=== PATIENT | female | born 1980 | race Caucasian/White ===

== ENCOUNTER → 2019-08-28 | Emergency (ER) | payer MEDICAID, OTHER, SELFPAY ==
[~2019-08-28] VITALS: Ht 162.6 cm; Wt 78.9 kg
[2019-08-28 18:23] VITALS: BP 138/90
== END | disposition home or self-care (01) ==
LOC: ER 17:55
DX: R05 Cough (principal); R51 Headache; R06.02 Shortness of breath; Z20.828 Contact with and (suspected) exposure to other viral communicable diseases
CPT/HCPCS: 71045; 87635

== ENCOUNTER → 2019-09-05 | Emergency (ER) | payer SELFPAY ==
[~2019-09-05] VITALS: Ht 162.6 cm; Wt 79.4 kg
[~2019-09-05] MED LIST: diphenhdrAMINE HCL 50 MG/1 ML VL IM ONE; methylPREDNISolone SOD SUCC 125 MG/2 ML VL IM ONE
[2019-09-05 20:03] VITALS: BP 130/79
== END | disposition home or self-care (01) ==
LOC: ER 18:46
DX: T78.40XA Allergy, unspecified, initial encounter (principal); R07.89 Other chest pain; X58.XXXA Exposure to other specified factors, initial encounter
CPT/HCPCS: 71045

== ENCOUNTER 2023-12-24 13:06 | Inpatient (IN) | payer BC, MEDICAID ==
[~2023-12-24] VITALS: Ht 162.6 cm; Wt 75.0 kg
[2023-12-24] MEDS: ASPirin 325 MG TAB PO ONE (13:30)
--- NOTE | 2023-12-24 13:49 | ED.PDOC ---
HPI Comments 43F presents to the Er w/ prior Hx on anxiety and a heart blockage which may be associated to the c/c of CP. Pt reports on driving home from [place] when she started to get substernal CP which radiated to the back 20 minutes ago. Pt notes on the pain being constant, sharp and pressure like. Pt has had similar pain in the past. PMHx of Chronic pain. SHx of Hysterectomy. Denies chills, fever, N/V/D, SOB or other associated symptoms, modifiers, or recent injuries at this time. Chief Complaint: Chest Pain Time Seen by MD: 13:30 Primary Care Provider: DESMOND Stern Notes: Nurses Notes, Medications, Allergies Allergies: Coded Allergies: NO KNOWN ALLERGIES (Unverified , 07/02/13) Information Source: Patient Mode of Arrival: Ambulatory Severity: Moderate Timing: Minutes Duration: Since onset, Minutes Prehospital treatment: None Location: Substernal Radiation: Back Quality: Sharp, Pressure Onset: At Rest Cardiac Risk Factors: None PE Risk Factors: None History of: Similar pain in past Associated Signs and Symptoms: Back Pain Past Medical History PAST MEDICAL HISTORY: Anxiety Past Medical History (Other): Heart blockage and chronic pain Surgical History: 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 Family History Family History: Reviewed,noncontributory to illness, Unknown Social History Smoker: Non-Smoker Alcohol: Denies ETOH Use Drugs: Denies Drug Use Lives In: Home Constitutional: denies: chills, diaphoresis, fatigue, fever, malaise, sweats, weakness, others EENTM: denies: blurred vision, double vision, ear bleeding, ear discharge, ear drainage, ear pain, ear ringing, eye pain, eye redness, hearing loss, mouth pain, mouth swelling, nasal discharge, nose bleeding, nose congestion, nose pain, photophobia, tearing, throat pain, throat swelling, voice changes, others Respiratory: denies: cough, hemoptysis, orthopnea, SOB at rest, shortness of breath, SOB with excertion, stridor, wheezing, others Cardiovascular: reports: chest pain; denies: dizzy spells, diaphoresis, Dyspnea on exertion, edema, irregular heart beat, left arm pain, lightheadedness, palpitations, PND, syncope, others Gastrointestinal: denies: abdomen distended, abdominal pain, blood streaked bowels, constipated, diarrhea, dysphagia, difficulty swallowing, hematemesis, melena, nausea, poor appetite, poor fluid intake, rectal bleeding, rectal pain, vomiting, others Genitourinary: denies: abnormal vagina bleeding, burning, dyspareunia, dysuria, flank pain, frequency, hematuria, incontinence, pain, , vagina discharge, urgency, others Neurological: denies: dizziness, fainting, headache, left sided numbness, left sided weakness, numbness, paresthesia, pre-existing deficit, right sided numbness, right sided weakness, seizure, speech problems, tingling, tremors, weakness, others Musculoskeletal: reports: back pain; denies: gout, joint pain, joint swelling, muscle pain, muscle stiffness, neck pain, others Integumetry: denies: bruises, change in color, change in hair/nails, dryness, laceration, lesions, lumps, rash, wounds, others Allergic/Immunocompromised: denies: Difficulty Healing, Frequent Infections, Hives, Itching, others Hematologic/Lymphatic: denies: anemia, blood clots, easy bleeding, easy bruising, swollen glands, others Endocrine: denies: excessive hunger, excessive sweating, excessive thirst, excessive urination, flushing, intolerance to cold, intolerance to heat, unexplained weight gain, unexplained weight loss, others Psychiatric: denies: anxiety, bipolar disorder, depression, hopeless, panic disorder, schizophrenia, sleepless, suicidal, others All Other Systems: Reviewed and Negative Physical Exam General Appearance: Moderate Distress, Normal HEENT: Normal ENT Inspection, Pharynx Normal, TMs Normal Neck: Full Range of Motion, Non-Tender, Normal, Normal Inspection Respiratory: Chest Non-Tender, Lungs Clear, No Accessory Muscle Use, No Respiratory Distress, Normal Breath Sounds Cardiovascular: No Edema, No JVD, No Murmur, No Gallop, Normal Peripheral Pulses, Regular Rate/Rhythm Breast Exam: Deferred Gastrointestinal: No Organomegaly, Non Tender, No Pulsatile Mass, Normal Bowel Sounds, Soft Genitalia: Deferred Pelvic: Deferred Rectal: Deferred Extremities: No calf tenderness, Normal capillary refill, Normal inspection, Normal range of motion, Non-tender, No pedal edema Musculoskeletal : Apperance: Normal Neurologic: Alert, wood carver hand II-XII nml as Tested, No Motor Deficits, Normal Affect, Normal Mood, No Sensory Deficits Cerebellar Function: NOT DONE Reflexes: NOT DONE Skin: Dry, Normal Color, Warm Peripheral Pulses: 3+ Radial (R), 3+ Radial (L) Lymphatic: No Adenopathy Was a procedure done? Was a procedure done?: No CP Differential Dx Differential Diagnosis: A-fib, A-Flutter, Angina, Anxiety / Panic Attack, Atrial Dysrhythmia, Electrolyte Disorder X-Ray, Labs, Meds, VS Vital Signs Date Time Temp Pulse Resp B/P (MAP) Pulse Ox O2 Delivery O2 Flow Rate FiO2 12/24/23 15:11 87 16 155/90 (111) 96 12/24/23 14:13 107 12/24/23 13:13 108 12/24/23 13:08 98.3 110 20 171/86 (114) 100 162/95 (117) Lab Test 12/24/23 14:52 12/24/23 14:20 12/24/23 13:28 Range/Units Troponin I High Sensitivity Pending 6 </=34 ng/L Urine Color Yellow Yellow Urine Clarity Clear Clear Urine pH 5.5 5.0-9.0 Urine Specific [place] 1.033 1.001-1.035 Urine Protein Trace H Negative Urine Ketones Trace Negative Urine Blood Negative Negative /uL Urine Nitrite Negative Negative Urine Bilirubin Negative Negative Urine Urobilinogen Normal Negative mg/dL Urine Leukocyte Esterase Negative Negative /uL Urine RBC 1 0 - 4 /hpf Urine WBC 2 0 - 5 /hpf Urine Squamous Epithelial Cells Few <5 /hpf Urine Bacteria None seen None Seen /hpf Urine Mucus Few None Seen Urine Glucose Normal Normal mg/dL White Blood Count 10.7 4.4-10.8 10^3/uL Red Blood Count 4.82 4.0-5.20 10^6/uL Hemoglobin 15.4 12.2-16.2 g/dL Hematocrit 43.9 36.0-46.0 % Mean Corpuscular Volume 90.9 80.0-100.0 fL Mean Corpuscular Hemoglobin 31.9 28.0-32.0 pg Mean Corpuscular Hemoglobin Concent 35.0 32.0-36.0 g/dL Red Cell Distribution Width 12.8 11.8-14.3 % Platelet Count 349 140-450 10^3/uL Mean Platelet Volume 8.7 6.9-10.8 fL Neutrophils (%) (Auto) 62.6 37.0-80.0 % Lymphocytes (%) (Auto) 29.1 10.0-50.0 % Monocytes (%) (Auto) 5.5 0.0-12.0 % Eosinophils (%) (Auto) 2.0 0.0-7.0 % Basophils (%) (Auto) 0.8 0.0-2.0 % Neutrophils # (Auto) 6.7 1.6-8.6 10 ^3/uL Lymphocytes # (Auto) 3.1 0.4-5.4 10 ^3/uL Monocytes # (Auto) 0.6 0-1.3 10 ^3/uL Eosinophils # (Auto) 0.2 0-0.8 10 ^3/uL Basophils # (Auto) 0.1 0-0.2 10 ^3/uL Nucleated Red Blood Cells 0.1 % Current Medications Medications (Trade) Dose Ordered Sig/Ranjeet Route Start Time Stop Time Status Last Admin Aspirin 325 mg ONCE ONCE PO 12/24/23 13:30 12/24/23 13:31 DC 12/24/23 13:30 Patient alert. Complaining of chest pain. States that she has a history of coronary artery disease pain Vitals stable. Never had a procedure. Was given aspirin. Continues to have chest discomfort. EKG reviewed does not show any acute changes. Reviewed her history. Explained to the patient. Continue pvc monitor. Has a difficulty ambulating. CT of the head reviewed does not show any acute changes. Time of 1ST Reevaluation: 14:00 Reevaluation 1ST: Unchanged Patient Education/Counseling: Diagnosis, Treatment, Prognosis Family Education/Counseling: No Family Present Departure 1 Departure Time of Disposition: 15:27 Impression: Primary Impression: Chest pain of unknown etiology Disposition: 09 ADMITTED INPATIENT Admit to: Med Surg Condition: Guarded Critical Care Note Critical Care Time?: Yes (45 min-critical care time only) Stability Stability form required: No Heart Score Heart Score: Heart Score Response (Comments) Value History Slightly Suspicious 0 EKG Normal 0 Age <45 0 Risk Factors No known risk factors 0 Troponin Normal limit 0 Total 0 I personally scribed for EMELIA GRAY MD ([email or web address]) on 12/24/23 at 13:49. Electronically submitted by Jayson Gallo ([email or web address]). EMELIA GRAY MD Dec 24, 2023 13:49
--- NOTE | 2023-12-24 14:11 | DVH ---
EXAM: CT HEAD WITHOUT CONTRAST INDICATION: confused TECHNIQUE: CT of the head without intravenous contrast. Radiation Dose Information: CT Dose: CTDI volume is 59.97 mGy. Dose-length product is 1061.69 mGy*cm The dose indicators for CT are the volume Computed Tomography (CT) Dose Index (CTDIvol) and the Dose Length Product (DLP), and are measured in units of mGy and mGy-cm, respectively. These indicators are not patient dose, but values generated from the CT scanner acquisition factors. The report includes radiation exposure data for exposures received during this examination. COMPARISON: None FINDINGS: There is no evidence of acute intracranial hemorrhage, extra-axial collection, mass effect, midline s hift, herniation or hydrocephalus. The ventricles, sulci and cisterns are age appropriate. The meyers-white differentiation is intact. Patchy periventricular and subcortical white matter hypoattenuation is nonspecific but may be related to small vessel ischemic disease. The visualized paranasal sinuses and mastoid air cells are clear. The surrounding soft tissues and osseous structures are unremarkable. IMPRESSION: 1. No acute intracranial hemorrhage 2. No CT findings of territorial ischemia. HS:Y
--- NOTE | 2023-12-24 14:15 | ECG ---
[facility] Test Date: 2023-12-24 Test Time: 14:13:35 Pat Name: LALO BALLARD Department: ER Room: Gender: F Founder President And Ceo: ANAND : 1980 Requested By: EMELIA GRAY Order Number: [id number] Reading MD: Measurements Intervals [place] Rate: 107 P: 71 GA: 146 QRS: 70 QRSD: 98 T: -38 QT: 349 QTc: 466 Interpretive Statements Sinus tachycardia Nonspecific T abnormalities, diffuse leads Please click the below link to view image of tracing.
[2023-12-24 14:21] LABS: Urine Bacteria None Seen /hpf (None Seen)
[2023-12-24 14:22] LABS: Basophils # (auto) 0.1 10 ^3/uL (0-0.2); Basophils % (auto) 0.8 % (0.0-2.0); Eosinophils # (auto) 0.2 10 ^3/uL (0-0.8); Hematocrit 43.9 % (36.0-46.0); Hemoglobin 15.4 g/dL (12.2-16.2); Lymphocytes # (auto) 3.1 10 ^3/uL (0.4-5.4); Lymphocytes % (auto) 29.1 % (10.0-50.0); Mean Corpuscular Hemoglobin 31.9 pg (28.0-32.0); Mean Corpuscular Volume 90.9 fL (80.0-100.0); Monocytes # (auto) 0.6 10 ^3/uL (0-1.3); Monocytes % (auto) 5.5 % (0.0-12.0); Neutrophils # (auto) 6.7 10 ^3/uL (1.6-8.6); Neutrophils % (auto) 62.6 % (37.0-80.0); Nucleated Red Blood Cells % 0.1 %; Platelet Count (auto) 349 10^3/uL (140-450); Red Blood Cells 4.82 10^6/uL (4.0-5.20); Red Cell Distribution Width 12.8 % (11.8-14.3); White Blood Cell 10.7 10^3/uL (4.4-10.8)
[2023-12-24] MEDS: NITROGLYCERIN 0.4 MG SL TAB SL ONE (14:32)
[2023-12-24] MEDS: LORazepam 2MG/ML-1ML VIAL IV ONE (14:32)
[2023-12-24 14:35] LABS: Urine Blood Negative /uL (Negative); Urine Clarity Clear (Clear); Urine Color Yellow (Yellow); Urine Mucus FEW (None Seen); Urine Protein, UAD TRACE (Negative); Urine Specific Gravity 1.033 (1.001-1.035); Urine Urobilinogen Normal (Negative); Urine WBC 2 /hpf (0 - 5); Urine pH 5.5 (5.0-9.0)
[2023-12-24 14:44] VITALS: PULSE 87; RESP 16; O2SAT 96
[2023-12-24 18:29] VITALS: BP 143/94; PULSE 77; RESP 16; O2SAT 97
--- NOTE | 2023-12-24 20:36 | DVH ---
EXAM: XY CHEST XRAY 1 VIEW TECHNIQUE: Single frontal chest radiograph CLINICAL HISTORY: chest pain COMPARISON: CHEST PORTABLE on DOS: 09/05/19, CHEST PORTABLE on DOS: 08/28/19 Findings/Impression: Frontal chest radiograph demonstrates no acute osseous or superficial soft tissue abnormalities. The trachea is midline. The cardiac silhouette and mediastinum are within normal limits. No pneumothorax, pleural effusions, or consolidations.
[2023-12-24] MEDS ORDERED: ACETAMINOPHEN 325 MG TAB PO PRN (20:45)
[2023-12-24] MEDS ORDERED: HYDROcodone-ACET 5/325MG TAB PO PRN (20:45)
[2023-12-24] MEDS ORDERED: ONDANSETRON HCL 4 MG/2 ML VIAL IV PRN (20:45)
[2023-12-24] MEDS ORDERED: MORPHINE SULFATE INJ 2 MG/ml SYRG IV PRN (20:45)
[2023-12-24] MEDS ORDERED: NITROGLYCERIN 0.4 MG SL TAB SL PRN (20:45)
--- NOTE | 2023-12-25 09:22 | DVHINCON2 ---
Allergies: Coded Allergies: NO KNOWN ALLERGIES (Unverified , 07/02/13) Current Medications Current Medications Medications (Trade) Dose Ordered Sig/Ranjeet Route PRN Reason Start Time Stop Time Status Last Admin Acetaminophen (Tylenol Tablet) 650 mg Q6HP PRN PO PAIN SCALE 1-3 OR TEMP>100.4 12/24/23 20:45 Acetaminophen/ Hydrocodone Bitart ([place] 5/325MG Tab) 1 tab Q4HP PRN PO MODERATE PAIN (4-6 PAIN SCALE) 12/24/23 20:45 Ondansetron HCl (Zofran) 4 mg Q4HP PRN IV NAUSEA / VOMITING 12/24/23 20:45 Nitroglycerin (Ntrostat Sublingual) 0.4 mg Q5MINP PRN SL FOR CHEST PAIN 12/24/23 20:45 Morphine Sulfate 2 mg Q30M PRN IV FOR CHEST PAIN 12/24/23 20:45 Vital Signs Vital Signs Date Time Temp Pulse Resp B/P (MAP) Pulse Ox O2 Delivery O2 Flow Rate FiO2 12/24/23 18:29 77 16 143/94 (110) 97 12/24/23 14:44 Room Air* 0 21 12/24/23 13:08 98.3 Labs/Diagnostic Data Labs Test 12/24/23 17:19 12/24/23 14:20 12/24/23 13:28 Range/Units Troponin I High Sensitivity 7 </=34 ng/L Beta HCG, Quantitative 0.5 L 1.5-4.2 mIU/mL Urine Color Yellow Yellow Urine Clarity Clear Clear Urine pH 5.5 5.0-9.0 Urine Specific [place] 1.033 1.001-1.035 Urine Protein Trace H Negative Urine Ketones Trace Negative Urine Blood Negative Negative /uL Urine Nitrite Negative Negative Urine Bilirubin Negative Negative Urine Urobilinogen Normal Negative mg/dL Urine Leukocyte Esterase Negative Negative /uL Urine RBC 1 0 - 4 /hpf Urine WBC 2 0 - 5 /hpf Urine Squamous Epithelial Cells Few <5 /hpf Urine Bacteria None seen None Seen /hpf Urine Mucus Few None Seen Urine Glucose Normal Normal mg/dL White Blood Count 10.7 4.4-10.8 10^3/uL Red Blood Count 4.82 4.0-5.20 10^6/uL Hemoglobin 15.4 12.2-16.2 g/dL Hematocrit 43.9 36.0-46.0 % Mean Corpuscular Volume 90.9 80.0-100.0 fL Mean Corpuscular Hemoglobin 31.9 28.0-32.0 pg Mean Corpuscular Hemoglobin Concent 35.0 32.0-36.0 g/dL Red Cell Distribution Width 12.8 11.8-14.3 % Platelet Count 349 140-450 10^3/uL Mean Platelet Volume 8.7 6.9-10.8 fL Neutrophils (%) (Auto) 62.6 37.0-80.0 % Lymphocytes (%) (Auto) 29.1 10.0-50.0 % Monocytes (%) (Auto) 5.5 0.0-12.0 % Eosinophils (%) (Auto) 2.0 0.0-7.0 % Basophils (%) (Auto) 0.8 0.0-2.0 % Neutrophils # (Auto) 6.7 1.6-8.6 10 ^3/uL Lymphocytes # (Auto) 3.1 0.4-5.4 10 ^3/uL Monocytes # (Auto) 0.6 0-1.3 10 ^3/uL Eosinophils # (Auto) 0.2 0-0.8 10 ^3/uL Basophils # (Auto) 0.1 0-0.2 10 ^3/uL Nucleated Red Blood Cells 0.1 % KESHAWN ZAMUDIO MD Dec 25, 2023 09:22
--- NOTE | 2023-12-25 14:41 | ECG ---
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
--- NOTE | 2023-12-25 18:37 | DVHHP2 ---
Admitting Diagnosis: Chief complaint: I had chest pain out of no where. History of Present Illness This is a 43-year-old female with listed past medical history who presents with complaint of left-sided and substernal and nonradiating pressure-like chest pain prompting her to seek medical attention at [facility] Emergency room where she was requested for admission for further evaluation and management. During the episode of chest pain, patient was also having difficulty ambulating. In the emergency room, initial workup revealed no significant acute findings and patient was recommended for admission for further evaluation and management. No major events reported overnight. Patient denies complaints of fevers, chills, change in appetite, chest pain, palpitations, cough, shortness of breath, dyspnea on exertion, abdominal pain, nausea, vomiting, diarrhea, constipation, dysuria, lightheadedness, weakness, paresthesia or other complaints. Last bowel movement was yesterday, brown, soft, no melena, no hematochezia. Past Medical History "Heart blockage" Anxiety disorder Family History Noncontributory Social History Patient denies current smoking, alcohol use or recreational/illicit drug use. Allergies: Coded Allergies: NO KNOWN ALLERGIES (Unverified , 07/02/13) Current Medications Current Medications Medications (Trade) Dose Ordered Sig/Ranjeet Route PRN Reason Start Time Stop Time Status Last Admin Acetaminophen (Tylenol Tablet) 650 mg Q6HP PRN PO PAIN SCALE 1-3 OR TEMP>100.4 12/24/23 20:45 Acetaminophen/ Hydrocodone Bitart ([place] 5/325MG Tab) 1 tab Q4HP PRN PO MODERATE PAIN (4-6 PAIN SCALE) 12/24/23 20:45 Ondansetron HCl (Zofran) 4 mg Q4HP PRN IV NAUSEA / VOMITING 12/24/23 20:45 Nitroglycerin (Ntrostat Sublingual) 0.4 mg Q5MINP PRN SL FOR CHEST PAIN 12/24/23 20:45 Morphine Sulfate 2 mg Q30M PRN IV FOR CHEST PAIN 12/24/23 20:45 Vital Signs Vital Signs Date Time Temp Pulse Resp B/P (MAP) Pulse Ox O2 Delivery O2 Flow Rate FiO2 12/24/23 18:29 77 16 143/94 (110) 97 12/24/23 14:44 Room Air* 0 21 12/24/23 13:08 98.3 Physical Exam Physical Exam: General: This is a 43-year-old female appearing stated age in no acute distress. HEENT: Pupils equal and reactive to light and accommodation. Extraocular muscles intact. Mucous membranes moist. Conjunctivae [place]. Anicteric Sclera. Lungs: Bilateral air entry; no wheezes, rhonchi, rales. Heart: Regular Rate and Rhythm. Normal S1/S2. Abdomen: Bowel Sounds Normoactive, soft, non-tender, non-distended, no cva tenderness. Extremities: No clubbing, cyanosis, edema. No calf tenderness. Pedal pulses 2+. Neurologic: Patient alert, awake and oriented x 3. Cranial nerves II through XII intact. No focal deficits on gross sensorimotor exam. Results Labs Test 12/24/23 17:19 12/24/23 14:20 12/24/23 13:28 Range/Units Troponin I High Sensitivity 7 </=34 ng/L Beta HCG, Quantitative 0.5 L 1.5-4.2 mIU/mL Urine Color Yellow Yellow Urine Clarity Clear Clear Urine pH 5.5 5.0-9.0 Urine Specific [place] 1.033 1.001-1.035 Urine Protein Trace H Negative Urine Ketones Trace Negative Urine Blood Negative Negative /uL Urine Nitrite Negative Negative Urine Bilirubin Negative Negative Urine Urobilinogen Normal Negative mg/dL Urine Leukocyte Esterase Negative Negative /uL Urine RBC 1 0 - 4 /hpf Urine WBC 2 0 - 5 /hpf Urine Squamous Epithelial Cells Few <5 /hpf Urine Bacteria None seen None Seen /hpf Urine Mucus Few None Seen Urine Glucose Normal Normal mg/dL White Blood Count 10.7 4.4-10.8 10^3/uL Red Blood Count 4.82 4.0-5.20 10^6/uL Hemoglobin 15.4 12.2-16.2 g/dL Hematocrit 43.9 36.0-46.0 % Mean Corpuscular Volume 90.9 80.0-100.0 fL Mean Corpuscular Hemoglobin 31.9 28.0-32.0 pg Mean Corpuscular Hemoglobin Concent 35.0 32.0-36.0 g/dL Red Cell Distribution Width 12.8 11.8-14.3 % Platelet Count 349 140-450 10^3/uL Mean Platelet Volume 8.7 6.9-10.8 fL Neutrophils (%) (Auto) 62.6 37.0-80.0 % Lymphocytes (%) (Auto) 29.1 10.0-50.0 % Monocytes (%) (Auto) 5.5 0.0-12.0 % Eosinophils (%) (Auto) 2.0 0.0-7.0 % Basophils (%) (Auto) 0.8 0.0-2.0 % Neutrophils # (Auto) 6.7 1.6-8.6 10 ^3/uL Lymphocytes # (Auto) 3.1 0.4-5.4 10 ^3/uL Monocytes # (Auto) 0.6 0-1.3 10 ^3/uL Eosinophils # (Auto) 0.2 0-0.8 10 ^3/uL Basophils # (Auto) 0.1 0-0.2 10 ^3/uL Nucleated Red Blood Cells 0.1 % Plan This is a 43-year-old female with a past medical history who presents with complaints of chest pain admitted for further evaluation and management of: 1. Chest pain; ACS ruled out thus far with serial cardiac enzymes. Questionable heart blockage history. Cardiac telemetry at EKG revealed no significant acute findings. Cardiology consultation. 2D Echo. 2. Difficulty ambulating. No focal deficits on gross exam. CT of the head is negative. PT evaluation. 3. Anxiety disorder; no acute decompensation. Follow up home medications. Aspiration and pressure ulcer precautions Incentive spirometry SCDs bilaterally All above discussed with the patient who verbalized agreement and understanding of current status and plan. All questions answered. Patient declined reaching out to any family for update. This medical document was created using an electronic medical record system with [employer] dictation system. Although this document has been carefully reviewed, there may still be some phonetic and typographical errors. These areas are purely typographical due to imperfections of the software programs, and do not reflect any compromise in the patient's medical care Plan discussed with: Other GERRY BEJARANO MD Dec 25, 2023 18:36
--- NOTE | 2023-12-25 18:52 | DVHDS2 ---
Discharge Summary Date of Admission Dec 24, 2023 at 20:44 Date of Discharge: Dec 25, 2023 Brief Hx & Hospital Course: This is a 43-year-old female with listed past medical history who presented with complaint of chest pain admitted for further evaluation and management. Thus far, serial cardiac enzymes revealed no significant acute findings. Patient ordered for 2D echocardiogram and Cardiology consultation. Although she initially agreed to the admission, patient appeared to have eloped from the emergency room. Attempts were made to contact her without success. Condition at Discharge: Undetermined Final Diagnosis/Problems List Chest pain. Anxiety disorder. "heart blockage" Discharge Disposition: AMA ASSESSMENT ASSESSMENT Assessment GERRY BEJARANO MD Dec 25, 2023 18:52
== END 2023-12-24 20:46 | disposition left against medical advice (07) | DRG 313 ==
LOC: ER 13:06 → TELE 20:44 → UNDODEPER 12-26 08:05
PROVIDERS: ADMIT Internal Medicine; ATTEND Internal Medicine
DX: R07.89 Other chest pain (principal); F41.9 Anxiety disorder, unspecified; G89.29 Other chronic pain; I45.9 Conduction disorder, unspecified; R26.2 Difficulty in walking, not elsewhere classified; Z90.710 Acquired absence of both cervix and uterus
CPT/HCPCS: 36415; 70450; 71045; 81001; 84484; 84702; 85025; 93005; 99291; G0378

== ENCOUNTER 2024-01-29 06:36 | Day surgery (SDC) | payer BC ==
[~2024-01-29] VITALS: Ht 162.6 cm; Wt 75.3 kg
[2024-01-29] VITALS (10 sets, daily range): BP systolic 104–123; BP diastolic 66–78; PULSE 53–71; RESP 11–18; TEMP 97.8; O2SAT 94–97
[~2024-01-29 06:36] MED LIST changes: +HYDR-4798 PO; +HYDR200T36 PO; -diphenhdrAMINE HCL 50 MG/1 ML VL IM ONE; -methylPREDNISolone SOD SUCC 125 MG/2 ML VL IM ONE
[2024-01-29] MEDS ORDERED: VERAPAMIL 2.5MG/ML INJ 2ML VIAL IV ONE (07:41)
[2024-01-29] MEDS ORDERED: fentaNYL CITRATE 100 MCG/2 ML VL ONE (07:41)
[2024-01-29] MEDS ORDERED: ANGIOMAX 250 MG VIAL IV ONE (07:41)
[2024-01-29] MEDS ORDERED: LIDOCAINE 2%HCL (LOCAL ANESTH.) INJ 20ML MDV ONE (07:42)
[2024-01-29] MEDS ORDERED: SODIUM CHL 0.9% 0 ML ONE (07:42)
[2024-01-29] MEDS ORDERED: MIDAZOLAM HCL 2MG/2ML 2ml VIAL (1mg/ml) ONE (07:42)
[2024-01-29] MEDS ORDERED: ONDANSETRON HCL 4 MG/2 ML VIAL ONE (07:53)
[2024-01-29] MEDS ORDERED: IODIXANOL 320MG/ML 100ML BTL IV ONE (08:00)
[2024-01-29] MEDS ORDERED: HEPARIN SODIUM (PORCINE) 5000 UNITS/ML 1ML VIAL ONE (08:13)
--- NOTE | 2024-01-29 08:18 | DVHOP2 ---
Operative Report Operative Report CARDIAC OPTICAL GLASS ETCHER PROCEDURE REPORT [place], [place] Date of Service: 01/29/24 Dust Mop Maker: Keshawn Zamudio MD PROCEDURES PERFORMED: Coronary angiogram, left heart catheterization, conscious sedation administration and supervision, less than 15 minutes; fluoroscopy use and interpretation. PREOPERATIVE DIAGNOSES: abnormal stress/ ro ischemic heart disease POSTOP DIAGNOSIS: normal coronary arteries DESCRIPTION OF PROCEDURE: The patient or appropriate family signed informed consent understanding the risks, benefits and alternatives of the procedure, they wished to proceed. The patient was brought to the cardiac manager labor delivery in n.p.o. state. The patient was prepped in a sterile fashion. Sedation was used per cardiac cath protocol. I administered 2 mL of 2% lidocaine to the right wrist. With an antegrade front wall puncture. I cannulated the right radial artery and placed a 6-[place] Glidesheath slender. Next, an intra-arterial spasmolytic was administered. Next, a - 5 [place] S[place]ord catheter and were used for coronary angiogram and LVEDP measurement and pressure pullback. At the completion of procedure, all guides and wires were removed, and there were no immediate complications. FINDINGS: RCA: Moderate vessel off the right sinus of Valsalva, there is no severe flow limiting stenosis. LEFT MAIN: Moderate size left main, it bifurcates into LAD and circumflex. no stenosis CIRCUMFLEX: Moderate caliber vessel coming off the left main with no flow limiting stenosis. LAD: LAD is a moderate caliber vessel coming of the left main. no severe c ad noted LVEDP of 13 mmhg CONCLUSIONS: 1. No severe epicardial CAD noted 2. NOrmal LVEDP 3. Results discussed with Dr Khang Beyer PLAN: Aggressive risk factor modification and medical management for the patient. KESHAWN ZAMUDIO MD Jan 29, 2024 08:18
== END 2024-01-29 10:44 | disposition home or self-care (01) ==
LOC: CATH 06:36
PROVIDERS: ATTEND Internal Medicine
DX: R94.39 Abnormal result of other cardiovascular function study (principal); F41.8 Other specified anxiety disorders; F17.210 Nicotine dependence, cigarettes, uncomplicated
CPT/HCPCS: 93458; C1894; J1644; J2250; J2405; J3010; Q9967; 99152